=== PATIENT | female | born 1985 | race American Indian/Alaskan Native ===

== ENCOUNTER 2018-03-27 16:53 | Emergency (ER) | payer SELFPAY ==
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
== END 2018-03-27 17:42 ==
LOC: JP.ED 16:53
DX: M79.601 Pain in right arm (principal); Z79.899 Other long term (current) drug therapy; Z02.89 Encounter for other administrative examinations; V48.5XXA Car driver injured in noncollision transport accident in traffic accident, initial encounter
CPT/HCPCS: 99282; 99284

== ENCOUNTER 2018-12-28 16:36 | Emergency (ER) | payer OTHER ==
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
--- NOTE | 2018-12-28 18:04 | CRLCR ---
Indication: Possible needle in right antecubital area Technique: Three views of the right elbow were obtained. Comparison: None Findings: No acute fracture or subluxation is identified. Two radiopacities are identified in the soft tissues anterior to the proximal humerus. Impression: Radiopacities within the soft tissues anterior to the elbow. Signed by: Natasha Be MD @12/28/2018 5:34:18 PM ROSE MARIE/Dictated by: Natasha Be MD @ 12/28/2018 5:34:00 PM (Electronically Signed)
[2018-12-30] MEDS ORDERED: Diphtheria/Tetanus Toxoids,Adult (Td) 0.5 ML SDV IM ONE (10:30)
== END 2018-12-28 17:28 ==
LOC: JP.ED 16:36
DX: S40.851A Superficial foreign body of right upper arm, initial encounter (principal); X58.XXXA Exposure to other specified factors, initial encounter
CPT/HCPCS: 73080-RT; 99283-25

== ENCOUNTER 2018-12-30 07:00 | Day surgery (SDC) | payer SELFPAY ==
[~2018-12-30 07:00] MED LIST: Bupivacaine 0.5% 50 ML MDV ONE; Lidocaine 1% with EPINEPHrine 1:100,000 50 ML MDV ONE
[2018-12-30] MEDS ORDERED: Dextrose 5%-Lactated Ringers 1,000 ML IV SCH (07:30)
[2018-12-30] MEDS ORDERED: ceFAZolin 2 GM in Sodium Chloride 0.9% 50 ML IV ONE (07:45)
[2018-12-30] MEDS ORDERED: fentaNYL 100 MCG/2 ML SDV ONE (07:51)
[2018-12-30] MEDS ORDERED: Midazolam 1 MG/ML 2 ML SDV ONE (07:51)
[2018-12-30] MEDS ORDERED: Propofol 200 MG/20 ML SDV ONE ×3 (07:51→09:08)
[2018-12-30] MEDS ORDERED: Diphtheria/Tetanus Toxoids,Adult (Td) 0.5 ML SDV IM ONE (10:33)
[2018-12-30] MEDS ORDERED: Ibuprofen 600 MG Tab PO PRN (10:51)
--- NOTE | 2019-01-07 13:14 | OR ---
DATE OF PROCEDURE: 12/30/2018 SURGEON: Juan Carlos Russell MD PREOPERATIVE DIAGNOSIS: Foreign bodies, right antecubital area x2 (broken off needles). POSTOPERATIVE DIAGNOSES: 1. Broken off needle in the subcutaneous tissue, right antecubital fossa. 2. Broken off needle in intramuscular location proximal to the right forearm. OPERATIVE PROCEDURES: Exploration of right antecubital and proximal forearm with: 1. Removal of subcutaneously located needle that had broken off in antecubital fossa (75817). 2. Removal of broken off needle located in intramuscular plane, right proximal forearm ([id number]). ANESTHESIA: Local plus IV sedation. INDICATIONS FOR PROCEDURE: This is a 33-year-old presenting with some broken off needles located in the antecubital fossa area. One of these is located just distal to the trajectory of the needle. Plan is to proceed with limited incision and attempted removal of these with fluoroscopic surveillance. There is quite a bit of scar around these and these have been present for some time, making this a somewhat complicated procedure. Potential risks including bleeding, infection, injury to the musculature, nerves, or vasculature in the area were all reviewed, and the patient wishes to proceed. Of note, the patient was near the end of her tetanus immunization, and postoperatively was given a Dip-Tet immunization. DETAILS OF PROCEDURE: The patient was taken to the operating room, placed in a supine position. IV sedation was administered, after which the right arm was prepped and draped. Initially, the area over the antecubital fossa where the subcutaneous tissue located needle was identified. Along the proximal end of the needle, a stab wound was made, and using fine Mosquito forceps, this was gradually dissected free from the surrounding soft tissues, grasped and removed. The second needle was quite a bit deeper in the intramuscular location, somewhat more distally. Similar incision was made, and eventually this area was dissected out using the fine hemostats and the needle grasped and removed. Both needles were confirmed to be completely removed by fluoroscopic evaluation. Sutures with rapidly dissolving chromic stitch at the puncture sites were then placed and dressing applied. The patient was taken to the recovery room in satisfactory condition. Juan Carlos Russell MD /[id number]
== END 2018-12-30 13:33 | disposition home or self-care (01) ==
LOC: JP.SDS 07:00
PROVIDERS: ATTEND Surgery
DX: M79.5 Residual foreign body in soft tissue (principal); F17.200 Nicotine dependence, unspecified, uncomplicated
CPT/HCPCS: 24200; 25248; 76000; 90471; 90714; A9270; J0690; J2250; J2704; J3010; J3490; J7042; J7050